=== PATIENT | male | born 2000 | race Caucasian/White ===

== ENCOUNTER 2022-10-11 19:28 | Emergency (ER) | payer OTHER ==
[~2022-10-11] VITALS: Ht 180.3 cm; Wt 68.5 kg
[~2022-10-11 19:28] MED LIST: CEFTIN250 MG/5 M PO
== END 2022-10-11 20:15 | disposition home or self-care (01) ==
LOC: ER 19:28
DX: U07.1 COVID-19 (principal); R53.81 Other malaise